=== PATIENT | male | born 1995 | race Caucasian/White ===

== ENCOUNTER → 2019-05-24 12:35 | Outpatient (CLI) | payer BC, SELFPAY ==
[2019-05-24 14:23] LABS: Urine N gonorrhoeae NOT DETECTED
[2019-05-24 14:27] LABS: Urine Chlamydia NOT DETECTED
[2019-05-24 15:50] LABS: Hepatitis B Surface Antigen NEGATIVE s/c (NEGATIVE)
[2019-05-24 16:04] LABS: HIV 1 & 2 Ab/Ag 4th Gen Combo NEGATIVE (NEGATIVE)
[2019-05-24 17:18] LABS: Hep C Virus Ab w/Reflex Quant INDETERMINATE s/c (NEGATIVE)
[2019-05-25 01:36] LABS: HSV 2 IGG AB < 0.91 index (0.00-0.90); HSV1IGG < 0.91 index (0.00-0.90)
[2019-05-25 08:11] LABS: RPR Screen Non Reactive (Non Reactive)
[2019-05-25 17:08] LABS: HSV I/II IgM <0.91 Ratio (0.00-0.90)
== END ==
PROVIDERS: Referring Provider Physician Assistant; Visit Provider Physician Assistant
DX: Z11.3 Encounter for screening for infections with a predominantly sexual mode of transmission (principal)
CPT/HCPCS: 86592; 86694; 86695; 86696; 86803; 87340; 87389; 87491; 87522; 87591